=== PATIENT | female | born 1970 | race Caucasian/White ===

== ENCOUNTER → 2019-07-16 09:42 | Outpatient (CLI) | payer BC, SELFPAY ==
--- NOTE | 2019-07-16 09:47 | VDLE_ITS ---
Reason For Study: Superficial thrombophlebitis Lt leg RIGHT LEFT CFV is compressible, spontaneous, phasic, CFV is compressible, spontaneous, phasic, competent and demonstrates normal competent, and demonstrates normal augmentation. augmentation. FV is compressible, spontaneous, phasic, FV is compressible, spontaneous, phasic, competent and demonstrates normal competent and demonstrates normal augmentation. augmentation. POP V is compressible, spontaneous, phasic, POP V is compressible, spontaneous, phasic, competent and demonstrates normal competent and demonstrates normal augmentation. augmentation. T/P Trunk is compressible. T/P Trunk is compressible. PTV is compressible. PTV is compressible. RT PerV is compressible. LT PerV is compressible. SFJ is competent and measures 0.53 x 0.58 cm. GSV, SSV not visualized due to previous EVLA. GSV proximal thigh measures 0.37 x 0.37 cm. GSV at knee measures 0.30 x 0.31 cm. Thrombus filled varicose veins noted in the GSV is competent throughout. left anterior lateral thigh from the groin to SSV proximal calf is competent and measures knee. 0.24 x 0.24 cm. Procedure Exam performed in department. A preliminary report was called and/or faxed to [facility]. Interpretation Summary Deep veins of the lower extremities are bilaterally patent and compressible segmentally. There is no evidence of deep vein thrombosis on either side. Valvular competence appears intact within the proximal deep venous systems bilaterally. The right great saphenous vein appears patent and compressible segmentally. The right sapheno-femoral junction is competent . The right great saphenous vein appears segmentally competent. The right small saphenous vein is patent and competent. The left great saphenous vein and small saphenous vein are not visualized, consistent with a prior endovenous laser ablation procedure. Acute superficial thrombophlebitis is noted involving superficial varicosities in the left bandar-lateral thigh from the groin to the knee. Ordering Physician: Dylan García Referring Physician: Brock Baez Performed By: Adrienne Jackson, T
== END ==
PROVIDERS: Family Provider Family Medicine; PCP Family Medicine; Referring Provider Surgery; Visit Provider Surgery
DX: I80.02 Phlebitis and thrombophlebitis of superficial vessels of left lower extremity (principal); M79.606 Pain in leg, unspecified
CPT/HCPCS: 93970